=== PATIENT | male | born 1980 | race Caucasian/White ===

== ENCOUNTER 2019-10-27 19:20 | Emergency (ER) | payer OTHER ==
[2019-10-27 19:28] VITALS: BP 115/96; PULSE 85; BMI 23.7
[2019-10-27 19:34] VITALS: TEMP 98.2
[2019-10-27] MEDS ORDERED: levETIRAcetam 500 MG/5 ML INJECTION VIAL IVPB ONE ×2 (19:45→19:47)
--- NOTE | 2019-10-27 19:50 | PDOC ---
History of Present Illness - General Chief Complaint: Seizure Stated Complaint: SEIZURE Time Seen by Provider: 10/27/19 19:29 Past History - Past Medical History Allergies/Adverse Reactions: Allergies Allergy/AdvReac Type Severity Reaction Status Date / Time Penicillins Allergy Hives Verified 10/27/19 19:25 Home Medications: Ambulatory Orders Gabapentin [Neurontin] 3,600 mg PO ASDIR 07/27/18 Oxcarbazepine [Trileptal -] 300 mg PO BID 07/27/18 COPD: No Psychiatric Problems: Yes (ADHD, MOOD SWINGS.) Seizures: Yes - Psycho Social/Smoking Cessation Hx Smoking History: Never smoked Number of Cigarettes Smoked Daily: 10 Hx Alcohol Use: No Drug/Substance Use Hx: No Substance Use Type: None *Physical Exam - Vital Signs Last Vital Signs Temp Pulse Resp BP Pulse Ox 98.2 F 85 20 115/96 100 10/27/19 19:25 10/27/19 19:26 10/27/19 19:26 10/27/19 19:26 10/27/19 19:26 ED Treatment Course - LABORATORY CBC & Chemistry Diagram: 10/27/19 20:30 10/27/19 20:30 - RADIOLOGY Radiology Studies Ordered: Category Date Time Status HEAD CT WITHOUT CONTRAST [CT] Stat CT Scan 10/27/19 19:46 Ordered Medical Decision Making - Medical Decision Making 10/27/19 20:01 39M PMH Seizures, intermittent explosive disorder, anxiety presenting after witnessed seizure at 7pm. Pt sat down for dinner and then had generalized shaking seizure. Fell and hit his head on the floor. Seizure lasted about 2 minutes and pt was unresponsive for an additional 2 minutes before "waking up," episode witnessed by brother at bedside. Pt took his medications this morning but endorses lack of sleep overnight. Last seizure was a few days ago right before pt was released from [facility]. Does not have a neurologist. Most of his medical care is at [facility]. CONSTITUTIONAL: Denies F / C HEENT: Denies changes in vision / hearing, sore throat, rhinorrhea RESP: Denies SOB CARD: Denies chest pain GI: Denies N / V / D, abdominal pain : Denies incontinence SKIN: Denies rashes NEURO: Denies acute numbness, tingling. Endorses chronic h/o numbness of the RUE. MSK: Denies neck pain PSYCH: Endorses anxiety and tremulousness GEN: NAD, comfortable. AAOx3. HEENT: NC/AT, CN II-XII grossly intact, EOMI, PERRL. No facial asymmetry. Moist mucous membranes. Normal voice. Supple neck w/ FROM, no midline TTP. CV: S1/S2, RRR, no m/r/g LUNG: CTAB, no wheezes, crackles, rales, rhonchi. GI: Soft, ndnt, +BS, no guarding, no rebound. No masses. EXTREMITIES: No LE edema. No obvious deformities of all extremities. Occasionally tremulous of RUE and RLE. SKIN: Warm, dry, no rashes appreciated. PSYCH: Normal mood and affect. NEURO: Moving all extremities, 5/5 RUE and RLE strength. 3/5 LUE and LLE strength; effort dependent. Sensation RUE > LUE, chronic. Sensation LEs intact and symmetric. 39M PMH Seizures, intermittent explosive disorder, anxiety presenting after a witness seizure w/ head strike. Pt states he is anxious and tremulous; tremors appear volitional in nature. - CBC, CMP - AEDs, fluids, tylenol Confirmed medications w/ [facility]: hydroxyzine 50mg 2 caps 1-2/day gabapentin 600mg 2 cap BID Oxycarbezepam 300 1.5 capsules BID 10/27/19 20:06 - loading with Oxycarbezepam and tylenol - fluids 10/27/19 20:29 rapid response was called - CT was concerned regarding shaking movements that pt was having. These movements were present at time of exam, patient remains awake and alert. At CT console, RN and I confirmed these movements were present. . A responding MD verbally requested ativan which was pulled from the pyxis by the RN but not opened/used. I verbally cancelled the order, the ativan was not given, and RN returned to [facility]. 10/27/19 21:34 CT Head Impression w/o acute pathology Labs reviewed unremarkable Pt states he is anxious and tremulous. Requesting Ativan as "that's what he gets at [facility]" Explained to pt that Ativan has specific indications for seizures. 10/27/19 21:46 Neuro c/s 10/27/19 22:02 d/w Dr. Carrizales - recs f/u neuro Boostrix Pt declined wound wash out and bacitracin DC w/ neuro f/u Discharge - Discharge Information Problems reviewed: Yes Clinical Impression/Diagnosis: Seizure Condition: Stable Disposition: HOME - Admission No - Follow up/Referral Referrals: Paco Carrizales MD [Staff Physician] - - Patient Discharge Instructions Patient Printed Discharge Instructions: DI for Seizure Disorder -- Adult Additional Instructions: Follow up with neurology in the next 1-2 days. Continue with your home medications as prescribed. Your head CT was negative for acute pathology. Immediately return to the nearest Emergency Department if you experience: - seizures - chest pain, shortness of breath - anything that concerns you - Post Discharge Activity
[2019-10-27] MEDS ORDERED: OXcarbazepine 300 MG TABLET (UD) PO ONE (20:05)
[2019-10-27] MEDS ORDERED: LORazepam 2 MG/ML SDV VIAL ONE (20:20)
[2019-10-27] MEDS ORDERED: ACETAMINOPHEN 1000 MG/100 ML VIAL (NON FORMULARY) IVPB ONE (20:27)
[2019-10-27] MEDS ORDERED: SODIUM CHLORIDE 0.9% 500 ML INFUS.BAG IV ONE (20:27)
[2019-10-27] MEDS ORDERED: ACETAMINOPHEN INJECTION 100 ML IVPB ONE (20:37)
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
[2019-10-27] MEDS ORDERED: OXcarbazepine 150 MG TABLET (UD) PO ONE (20:45)
[2019-10-27 21:13] LABS: BASO % 2.4 % (0-2.0); EOS % 7.3 % (0-4.5); HEMATOCRIT 40.8 % (35.4-49); HEMOGLOBIN 13.8 GM/dL (11.7-16.9); LYMPH % 36.4 % (8-40); MCH 28.3 pg (25.7-33.7); MCHC 33.8 g/dl (32.0-35.9); MEAN CELL VOLUME 83.7 fl (80-96); MEAN PLT VOLUME 7.5 fl (7.5-11.1); MONO % 8.7 % (3.8-10.2); NEUT % 45.2 % (42.8-82.8); PLATELET COUNT 276 K/MM3 (134-434); RBC 4.87 M/mm3 (4.00-5.60); WHITE BLOOD COUNT 5.2 K/mm3 (4.0-10.0)
[2019-10-27 21:41] LABS: BILIRUBIN,TOTAL 0.2 mg/dL (0.2-1); BLOOD UREA NITROGEN 13.7 mg/dL (7-18); CALCIUM 9.1 mg/dL (8.5-10.1); CREATININE 1.2 mg/dL (0.55-1.3); MAGNESIUM 2.1 mg/dL (1.8-2.4); PHOSPHOROUS 4.2 mg/dL (2.5-4.9); POTASSIUM 3.9 mmol/L (3.5-5.1); TOT PROT 7.1 g/dl (6.4-8.2)
[2019-10-27] MEDS ORDERED: DIPHTH,PERTUSS(ACELL),TET 0.5 ML DISP.SYRIN IM ONE ×2 (22:09→22:12)
== END 2019-10-27 22:27 | disposition home or self-care (01) ==
LOC: JER 19:20
DX: S01.81XA Laceration without foreign body of other part of head, initial encounter (principal); W07.XXXA Fall from chair, initial encounter; G40.909 Epilepsy, unspecified, not intractable, without status epilepticus; Y93.89 Activity, other specified; Y92.038 Other place in apartment as the place of occurrence of the external cause; Y99.8 Other external cause status; Z88.0 Allergy status to penicillin; F90.9 Attention-deficit hyperactivity disorder, unspecified type; F39 Unspecified mood [affective] disorder
CPT/HCPCS: 36415; 70450-TC; 80053; 83735; 84100; 85025; 90715; 99282-25; J0131

== ENCOUNTER 2022-05-20 07:25 | Emergency (ER) | payer OTHER ==
[2022-05-20 07:51] VITALS: RESP 16; BMI 23.1
[2022-05-20] MEDS ORDERED: IBUPROFEN 400 MG TABLET (FP) PO ONE ×2 (08:06→08:19)
[2022-05-20 10:48] VITALS: BP 113/62; PULSE 65; TEMP 97.8
== END 2022-05-20 10:50 | disposition home or self-care (01) ==
LOC: JER 07:25
DX: M25.532 Pain in left wrist (principal); M25.512 Pain in left shoulder; M54.50 Low back pain, unspecified; Y35.893A Legal intervention involving other specified means, suspect injured, initial encounter
CPT/HCPCS: 72100-TC-FY; 73030-TC-LT-FY; 73110-TC-LT-FY; 99285-25

== ENCOUNTER 2022-05-27 15:32 | Emergency (ER) | payer OTHER ==
[2022-05-27 15:49] VITALS: BP 122/84; PULSE 77; RESP 18; TEMP 99; BMI 23.1
[2022-05-27 16:39] LABS: BASO % 1.4 % (0-2.0); EOS % 3.4 % (0-4.5); HEMATOCRIT 42.3 % (35.4-49); HEMOGLOBIN 14.8 GM/dL (11.7-16.9); LYMPH % 20.7 % (8-40); MCH 30.1 pg (25.7-33.7); MEAN CELL VOLUME 86.1 fl (80-96); MONO % 9.1 % (3.8-10.2); NEUT % 65.4 % (42.8-82.8); PLATELET COUNT 217 10^3/uL (134-434); RBC 4.91 M/mm3 (4.00-5.60); RDW 13.6 % (11.9-15.9); WHITE BLOOD COUNT 7.3 K/mm3 (4.0-10.0)
[2022-05-27 17:10] LABS: CALCIUM 8.5 mg/dL (8.5-10.1)
[2022-05-27 17:11] LABS: BLOOD UREA NITROGEN 15.4 mg/dL (7-18)
[2022-05-27 17:14] LABS: CREATININE 1.1 mg/dL (0.55-1.3)
[2022-05-27 17:15] LABS: BILIRUBIN,TOTAL 0.3 mg/dL (0.2-1)
== END 2022-05-27 17:15 | disposition left against medical advice (07) ==
LOC: JER 15:32
DX: R25.1 Tremor, unspecified (principal)
CPT/HCPCS: 36415; 80053; 85025; 93005; 93010; 99283-25

== ENCOUNTER 2022-05-31 20:26 | Emergency (ER) | payer OTHER ==
[2022-05-31 20:34] VITALS: BP 133/91; PULSE 82; RESP 18; TEMP 98.4; BMI 23.1
[2022-05-31] MEDS ORDERED: SODIUM CHLORIDE 0.9% 500 ML INFUS.BAG IV ONE (22:04)
[2022-05-31] MEDS ORDERED: ACETAMINOPHEN 1000 MG/100 ML BAG IVPB ONE (22:04)
[2022-05-31 22:18] LABS: BASO % 2.3 % (0-2.0); EOS % 4.5 % (0-4.5); HEMATOCRIT 39.9 % (35.4-49); LYMPH % 27.1 % (8-40); MCH 30.2 pg (25.7-33.7); MCHC 35.1 g/dl (32.0-35.9); MEAN CELL VOLUME 86.1 fl (80-96); MEAN PLT VOLUME 8.2 fl (7.5-11.1); MONO % 9.5 % (3.8-10.2); NEUT % 56.6 % (42.8-82.8); PLATELET COUNT 209 10^3/uL (134-434); RBC 4.63 M/mm3 (4.00-5.60); RDW 13.8 % (11.9-15.9); WHITE BLOOD COUNT 6.6 K/mm3 (4.0-10.0)
[2022-05-31 22:27] LABS: PH,URINE 6.5 (5.0-8.0); URINE APPEARANCE CLEAR; URINE BILIRUBIN NEGATIVE (NEGATIVE); URINE COLOR YELLOW; URINE GLUCOSE (UA) NEGATIVE (NEGATIVE); URINE KETONE NEGATIVE (NEGATIVE); URINE LEUK ESTERASE NEGATIVE (NEGATIVE); URINE NITRITE NEGATIVE (NEGATIVE); URINE PROTEIN NEGATIVE (NEGATIVE); URINE UROBILINOGEN 0.2 mg/dL (0.2-1.0)
[2022-05-31 22:47] LABS: BLOOD UREA NITROGEN 14.9 mg/dL (7-18); CALCIUM 8.3 mg/dL (8.5-10.1)
[2022-05-31 22:48] LABS: ALBUMIN 3.7 g/dl (3.4-5.0)
[2022-05-31 22:50] LABS: CREATININE 1.1 mg/dL (0.55-1.3)
[2022-05-31 22:52] LABS: BILIRUBIN,TOTAL 0.2 mg/dL (0.2-1); TOT PROT 6.5 g/dl (6.4-8.2)
== END 2022-05-31 22:54 | disposition left against medical advice (07) ==
LOC: JER 20:26
DX: G40.89 Other seizures (principal)
CPT/HCPCS: 36415; 70450-TC; 70486-TC; 71045-TC-FY; 72125-TC; 80053; 81003; 82550; 82553; 82962; 83735; 85025; 87086; 99285-25

== ENCOUNTER 2025-05-20 14:44 | Inpatient (IN) | payer OTHER ==
[2025-05-20 14:52] VITALS: BMI 22.4
[2025-05-20] MEDS ORDERED: ACETAMINOPHEN 325 MG TABLET (FP) ONE (16:01)
[2025-05-20] MEDS: ACETAMINOPHEN 325 MG TABLET (FP) PO ONE (16:08)
[2025-05-20 16:51] LABS: ABSOLUTE IMMATURE GRANULOCYTES 0.02 x10^3/uL (0.0-0.031); BASOPHILS # 0.10 x10^3/uL (0.01-0.08); EOSINOPHIL % 0.0 % (0.8-7.0); EOSINOPHILS # 0.00 x10^3/uL (0.04-0.54); MCHC 31.7 g/dl (32.3-36.5); MEAN CELL VOLUME 88.5 fl (79.0-92.2); MEAN PLT VOLUME 9.4 fl (9.4-12.4); MONOCYTE # 0.74 x10^3/uL (0.30-0.82); MONOCYTE % 7.3 % (5.3-12.2); RDW 12.5 % (12.1-15.9)
[2025-05-20 16:52] LABS: URINE APPEARANCE CLEAR; URINE BILIRUBIN NEGATIVE (NEGATIVE); URINE COLOR YELLOW; URINE GLUCOSE (UA) NEGATIVE (NEGATIVE); URINE KETONE NEGATIVE (NEGATIVE); URINE LEUK ESTERASE NEGATIVE (NEGATIVE); URINE NITRITE NEGATIVE (NEGATIVE); URINE PROTEIN NEGATIVE (NEGATIVE); URINE UROBILINOGEN 0.2 mg/dL (0.2-1.0)
[2025-05-20 16:54] LABS: BG HCT 41.0 % (35.4-49); VENOUS BASE EXCESS -1.1 mmol/L (-2-2); VENOUS O2 SATURATION 51.5 % (70-80); VENOUS PCO2 45.0 mmHg (38-52); VENOUS PH 7.356 (7.310-7.410)
[2025-05-20 17:00] LABS: INR 1.15 (0.83-1.09); PROTHROMBIN TIME (PATIENT) 12.6 SEC (9.7-13.0)
[2025-05-20 17:02] LABS: ACTIVATED PTT 29.6 SECONDS (25.2-36.5)
[2025-05-20 17:14] LABS: CO2 30.0 mmol/L (21-32); GLUCOSE,RANDOM 106.0 mg/dL (74-106)
[2025-05-20 17:17] LABS: CREATININE 1.0 mg/dL (0.55-1.3); SGOT/AST 25.0 U/L (15-37); SGPT/ALT 33.0 U/L (13-61)
[2025-05-20 17:19] LABS: TOT PROT 6.4 g/dl (6.4-8.2)
[2025-05-20 17:20] LABS: ALK PHOS 53.0 U/L (45-117)
[2025-05-20] MEDS ORDERED: VANCOMYCIN HCL 1,500 MG in DEXTROSE 5%-WATER - 500 ML IVPB ONE (17:32)
[2025-05-20] MEDS ORDERED: PIPERACILLIN/TAZOB 4.5 GM 4.5 GM/100 ML BAG IVPB ONE (17:52)
[2025-05-20] MEDS: PIPERACILLIN/TAZOB 4.5 GM 4.5 GM in DEXTROSE 5%-WATER 100 ML IVPB ONE (18:00)
[2025-05-20] MEDS: VANCOMYCIN HCL IN 5 % DEXTROSE 1,500 MG/300 ML BAG IVPB ONE (19:48)
[2025-05-20] MEDS ORDERED: ACETAMINOPHEN 1000 MG/100 ML BAG IVPB PRN (22:44)
[2025-05-20] MEDS ORDERED: KETOROLAC TROMETHAMINE 30 MG/1 ML VIAL IVPUSH PRN (22:46)
[2025-05-20 22:54] LABS: METHADONE, UR NEGATIVE (NEGATIVE); OPIATES, URI NEGATIVE (NEGATIVE); URINE AMPHETAMINES NEGATIVE (NEGATIVE); URINE BARBITURATES NEGATIVE (NEGATIVE); URINE BENZODIAZEPINES NEGATIVE (NEGATIVE)
[2025-05-20 22:55] LABS: PHENCYCLIDINE,URINE NEGATIVE (NEGATIVE)
[2025-05-20 22:58] LABS: COCAINE, UR POSITIVE (NEGATIVE)
[2025-05-21] MEDS: morphine CARPU-JECT 2 MG/1 ML DISP.SYRIN IVPUSH PRN (00:45)
[2025-05-21] MEDS: AMPICILLIN NA/SULBACTAM NA 3 GM in SODIUM CHLORIDE 100 ML IVPB SCH (02:41)
[2025-05-21 08:59] LABS: ABSOLUTE IMMATURE GRANULOCYTES 0.02 x10^3/uL (0.0-0.031); BASOPHILS # 0.09 x10^3/uL (0.01-0.08); EOSINOPHIL % 0.8 % (0.8-7.0); EOSINOPHILS # 0.06 x10^3/uL (0.04-0.54); MCHC 32.0 g/dl (32.3-36.5); MEAN CELL VOLUME 87.5 fl (79.0-92.2); MEAN PLT VOLUME 9.8 fl (9.4-12.4); MONOCYTE # 0.73 x10^3/uL (0.30-0.82); MONOCYTE % 9.3 % (5.3-12.2); RDW 12.5 % (12.1-15.9)
[2025-05-21] MEDS: VANCOMYCIN PREMIX 1.5 GM 1,500 MG/300 ML BAG IVPB SCH (09:47)
[2025-05-21] MEDS: GABAPENTIN 300 MG CAPSULE PO SCH (09:47)
[2025-05-21] MEDS: ENOXAPARIN NA (PORCINE) 40 MG/0.4 ML DISP.SYRIN SQ SCH (09:47)
[2025-05-21] MEDS: NICOTINE 7 MG/24 HOURS TOPICAL PATCH TD SCH (09:47)
[2025-05-21 09:57] LABS: CO2 30.0 mmol/L (21-32); GLUCOSE,RANDOM 98.0 mg/dL (74-106)
[2025-05-21 10:01] LABS: CREATININE 1.0 mg/dL (0.55-1.3); SGOT/AST 26.0 U/L (15-37); SGPT/ALT 35.0 U/L (13-61)
[2025-05-21 10:02] LABS: TOT PROT 6.5 g/dl (6.4-8.2)
[2025-05-21 10:03] LABS: ALK PHOS 50.0 U/L (45-117)
[2025-05-21 10:10] LABS: ERYTHROCYTE SEDIMENTATION RATE 8 mm/hr (0-10)
[2025-05-21] MEDS: OXcarbazepine 300 MG TABLET (UD) PO SCH (11:46)
[2025-05-21] MEDS: VANCOMYCIN HCL IN 5 % DEXTROSE 1,500 MG/300 ML BAG IVPB SCH (12:39)
[2025-05-21] MEDS: CEFAZOLIN 1 GM in DEXTROSE 5%-WATER - 50 ML IVPB SCH (18:32)
[2025-05-21] MEDS ORDERED: VANCOMYCIN HCL 1,500 MG in DEXTROSE 5%-WATER - 500 ML IVPB SCH (20:00)
[2025-05-21] MEDS ORDERED: VANCOMYCIN HCL IN 5 % DEXTROSE 1,500 MG/300 ML BAG IVPB SCH (20:00)
[2025-05-21] MEDS: VANCOMYCIN/WATER 1250 MG 1,250 MG/250 ML BAG IVPB SCH (22:10)
[2025-05-22 03:15] VITALS: RESP 18
[2025-05-22 08:26] LABS: MCHC 31.8 g/dl (32.3-36.5); MEAN CELL VOLUME 88.0 fl (79.0-92.2); MEAN PLT VOLUME 9.6 fl (9.4-12.4); RDW 12.4 % (12.1-15.9)
[2025-05-22 09:08] LABS: CO2 29.0 mmol/L (21-32); GLUCOSE,RANDOM 111.0 mg/dL (74-106)
[2025-05-22 09:11] LABS: CREATININE 0.9 mg/dL (0.55-1.3)
[2025-05-22] MEDS ORDERED: NALOXONE HCL 0.4 MG/ML VIAL ONE (09:22)
[2025-05-22] MEDS ORDERED: ACETAMINOPHEN 325 MG TABLET (FP) PO PRN (15:48)
[2025-05-22] MEDS ORDERED: KETOROLAC TROMETHAMINE 30 MG/1 ML VIAL IVPUSH PRN (15:49)
[2025-05-22] MEDS ORDERED: NICOTINE 14 MG/24 HOURS TOPICAL PATCH TD SCH (16:18)
[2025-05-22] MEDS: CEFAZOLIN 1 GM/D5W 1 GM/50 ML BAG IVPB SCH (17:10)
[2025-05-22 17:39] LABS: HIV INTERPRETATION NEGATIVE (NEGATIVE)
[2025-05-22] MEDS: OXcarbazepine 150 MG TABLET (UD) PO SCH (21:08)
[2025-05-22] MEDS: morphine CARPU-JECT 2 MG/1 ML DISP.SYRIN IVPUSH PRN (21:08)
[2025-05-22] MEDS: GABAPENTIN 300 MG CAPSULE PO SCH (21:08)
[2025-05-22] MEDS: VANCOMYCIN/WATER 1250 MG 1,250 MG/250 ML BAG IVPB SCH (23:31)
[2025-05-23 06:41] LABS: MCHC 31.2 g/dl (32.3-36.5); MEAN CELL VOLUME 90.2 fl (79.0-92.2); MEAN PLT VOLUME 9.7 fl (9.4-12.4); RDW 12.4 % (12.1-15.9)
[2025-05-23 07:02] LABS: CO2 35.0 mmol/L (21-32)
[2025-05-23 07:03] VITALS: TEMP 98.2
[2025-05-23 07:03] LABS: GLUCOSE,RANDOM 116.0 mg/dL (74-106)
[2025-05-23 07:06] LABS: CREATININE 1.1 mg/dL (0.55-1.3)
[2025-05-23 08:39] VITALS: BP 126/99; PULSE 65
[2025-05-23] MEDS ORDERED: ENOXAPARIN NA (PORCINE) 40 MG/0.4 ML DISP.SYRIN SQ SCH (10:00)
[2025-05-23] MEDS ORDERED: morphine CARPU-JECT 2 MG/1 ML DISP.SYRIN IVPUSH ONE (20:42)
[2025-05-24 12:53] LABS: HCV DIAGNOSTIC IN-HOUSE W/RFLX REACTIVE (NONREACTIVE)
== END 2025-05-23 08:39 | disposition left against medical advice (07) | DRG 383 ==
LOC: JER 14:44 → JERBED 20:49 → J6S 05-21 00:24 → J4W 05-22 11:03
PROVIDERS: ADMIT Hospitalist; ATTEND Internal Medicine
DX: L03.011 Cellulitis of right finger (principal); I07.8 Other rheumatic tricuspid valve diseases; F14.10 Cocaine abuse, uncomplicated; F10.90 Alcohol use, unspecified, uncomplicated; F17.210 Nicotine dependence, cigarettes, uncomplicated; G40.909 Epilepsy, unspecified, not intractable, without status epilepticus; R22.31 Localized swelling, mass and lump, right upper limb; R55 Syncope and collapse; Z59.00 Homelessness unspecified
CPT/HCPCS: 36415; 70450-TC; 71045-TC-FY; 73070-TC-RT-FY; 73090-TC-RT-FY; 73130-TC-RT-FY; 73201-TC-RT; 80048; 80053; 80307; 81003; 82550; 82803; 82962; 83605; 83735; 84100; 84484; 85025; 85027; 85610; 85651; 85730; 86140; 86803; 86850; 86900; 86901; 87040; 87086; 87389; 87522; 87637-QW; 93005; 93010; 93306-TC; 99285-25; G0480; Q9967

== ENCOUNTER 2025-05-23 15:39 | Observation (INO) | payer OTHER ==
[2025-05-23 15:47] VITALS: BMI 22.4
[2025-05-23] MEDS ORDERED: GABAPENTIN 300 MG CAPSULE ONE (17:55)
[2025-05-23] MEDS ORDERED: ACETAMINOPHEN 325 MG TABLET (FP) ONE (17:55)
[2025-05-23 18:02] LABS: MCHC 31.6 g/dl (32.3-36.5); MEAN CELL VOLUME 88.0 fl (79.0-92.2); MEAN PLT VOLUME 9.6 fl (9.4-12.4); RDW 12.3 % (12.1-15.9)
[2025-05-23] MEDS: ACETAMINOPHEN 325 MG TABLET (FP) PO ONE (18:08)
[2025-05-23] MEDS: GABAPENTIN 300 MG CAPSULE PO SCH (18:09)
[2025-05-23] MEDS: LACTATED RINGERS SOLUTION 1,000 ML/1,000 ML INFUS.BAG IV SCH (18:09)
[2025-05-23] MEDS ORDERED: KETOROLAC TROMETHAMINE 15 MG/ML VIAL ONE (18:12)
[2025-05-23] MEDS: VANCOMYCIN/WATER 1250 MG 1,250 MG/250 ML BAG IVPB SCH (18:20)
[2025-05-23] MEDS: KETOROLAC TROMETHAMINE 15 MG/ML VIAL IVPUSH PRN (18:21)
[2025-05-23 18:23] LABS: CO2 35.0 mmol/L (21-32); GLUCOSE,RANDOM 100.0 mg/dL (74-106)
[2025-05-23 18:26] LABS: CREATININE 0.9 mg/dL (0.55-1.3); SGOT/AST 51.0 U/L (15-37); SGPT/ALT 63.0 U/L (13-61)
[2025-05-23 18:26] LABS: METHADONE, UR NEGATIVE (NEGATIVE); PHENCYCLIDINE,URINE NEGATIVE (NEGATIVE); URINE AMPHETAMINES NEGATIVE (NEGATIVE); URINE BARBITURATES NEGATIVE (NEGATIVE); URINE BENZODIAZEPINES NEGATIVE (NEGATIVE)
[2025-05-23 18:27] LABS: TOT PROT 7.4 g/dl (6.4-8.2)
[2025-05-23 18:29] LABS: ALK PHOS 50.0 U/L (45-117)
[2025-05-23 19:05] LABS: COCAINE, UR POSITIVE (NEGATIVE); OPIATES, URI POSITIVE (NEGATIVE)
[2025-05-23] MEDS: ACETAMINOPHEN 1000 MG/100 ML BAG IVPB ONE (21:46)
[2025-05-23] MEDS: HEPARIN NA (PORCINE) 5,000 UNITS/ML 1ML VIAL SQ SCH (21:48)
[2025-05-23] MEDS: OXcarbazepine 150 MG TABLET (UD) PO SCH (21:48)
[2025-05-24 06:54] LABS: MCHC 31.2 g/dl (32.3-36.5); MEAN CELL VOLUME 90.1 fl (79.0-92.2); MEAN PLT VOLUME 9.8 fl (9.4-12.4); RDW 12.3 % (12.1-15.9)
[2025-05-24 07:42] LABS: CO2 31.0 mmol/L (21-32); GLUCOSE,RANDOM 104.0 mg/dL (74-106)
[2025-05-24 07:44] LABS: CREATININE 1.0 mg/dL (0.55-1.3)
[2025-05-24] MEDS ORDERED: KETOROLAC TROMETHAMINE 15 MG/ML VIAL IVPUSH PRN ×3 (12:04→12:40)
[2025-05-24] MEDS ORDERED: ACETAMINOPHEN 325 MG TABLET (FP) PO PRN (15:18)
[2025-05-24] MEDS: ACETAMINOPHEN 325 MG TABLET (FP) PO PRN (15:31)
[2025-05-24] MEDS: NICOTINE 21 MG/24 HOURS TOPICAL PATCH TD SCH (15:32)
[2025-05-24] MEDS: VANCOMYCIN/WATER 1250 MG 1,250 MG/250 ML BAG IVPB SCH (17:54)
[2025-05-24] MEDS: morphine CARPU-JECT 2 MG/1 ML DISP.SYRIN IM PRN (17:55)
[2025-05-25 07:50] LABS: ABSOLUTE IMMATURE GRANULOCYTES 0.04 x10^3/uL (0.0-0.031); BASOPHILS # 0.11 x10^3/uL (0.01-0.08); EOSINOPHIL % 2.9 % (0.8-7.0); EOSINOPHILS # 0.19 x10^3/uL (0.04-0.54); MCHC 30.8 g/dl (32.3-36.5); MEAN CELL VOLUME 89.9 fl (79.0-92.2); MEAN PLT VOLUME 10.0 fl (9.4-12.4); MONOCYTE # 0.64 x10^3/uL (0.30-0.82); MONOCYTE % 9.9 % (5.3-12.2); RDW 12.4 % (12.1-15.9)
[2025-05-25 08:17] LABS: CO2 34.0 mmol/L (21-32); GLUCOSE,RANDOM 97.0 mg/dL (74-106)
[2025-05-25 08:20] LABS: SGOT/AST 47.0 U/L (15-37); SGPT/ALT 59.0 U/L (13-61)
[2025-05-25 08:22] LABS: ALK PHOS 44.0 U/L (45-117); CREATININE 1.2 mg/dL (0.55-1.3); TOT PROT 6.1 g/dl (6.4-8.2)
[2025-05-26 02:01] VITALS: RESP 16
[2025-05-26 06:50] LABS: ABSOLUTE IMMATURE GRANULOCYTES 0.02 x10^3/uL (0.0-0.031); BASOPHILS # 0.09 x10^3/uL (0.01-0.08); EOSINOPHIL % 1.1 % (0.8-7.0); EOSINOPHILS # 0.06 x10^3/uL (0.04-0.54); MCHC 31.1 g/dl (32.3-36.5); MEAN CELL VOLUME 88.6 fl (79.0-92.2); MEAN PLT VOLUME 9.7 fl (9.4-12.4); MONOCYTE # 0.50 x10^3/uL (0.30-0.82); MONOCYTE % 9.2 % (5.3-12.2); RDW 12.3 % (12.1-15.9)
[2025-05-26 09:33] VITALS: BP 145/97; PULSE 76; TEMP 98.6
[2025-05-26 10:22] LABS: GLUCOSE,RANDOM 103.0 mg/dL (74-106)
[2025-05-26 10:23] LABS: TOT PROT 6.5 g/dl (6.4-8.2)
[2025-05-26 10:24] LABS: CO2 25.0 mmol/L (21-32)
[2025-05-26 10:25] LABS: ALK PHOS 44.0 U/L (40-150)
[2025-05-26 10:28] LABS: CREATININE 0.89 mg/dL (0.55-1.3); SGOT/AST 52.0 U/L (5-34); SGPT/ALT 60.0 U/L (0-55)
[2025-05-26] MEDS: ACETAMINOPHEN 500 MG TABLET (FP) PO SCH (10:28)
[2025-05-26] MEDS: CELECOXIB 200 MG CAPSULE PO SCH (10:30)
== END 2025-05-26 12:55 | disposition left against medical advice (07) ==
LOC: JER 15:39 → JERBED 17:52 → J4S 19:47
PROVIDERS: ADMIT Internal Medicine; ATTEND Internal Medicine
PROC: 3E033NZ Introduction of Analgesics, Hypnotics, Sedatives into Peripheral Vein, Percutaneous Approach (ICD-10-PCS; principal; 2025-05-23)
PROC: 3E023GC Introduction of Other Therapeutic Substance into Muscle, Percutaneous Approach (ICD-10-PCS; 2025-05-23)
PROC: 3E0337Z Introduction of Electrolytic and Water Balance Substance into Peripheral Vein, Percutaneous Approach (ICD-10-PCS; 2025-05-23)
PROC: 3E023NZ Introduction of Analgesics, Hypnotics, Sedatives into Muscle, Percutaneous Approach (ICD-10-PCS; 2025-05-23)
PROC: 3E03329 Introduction of Other Anti-infective into Peripheral Vein, Percutaneous Approach (ICD-10-PCS; 2025-05-23)
DX: Z53.29 Procedure and treatment not carried out because of patient's decision for other reasons (principal); M25.521 Pain in right elbow; R56.9 Unspecified convulsions; F39 Unspecified mood [affective] disorder; Z86.19 Personal history of other infectious and parasitic diseases; F17.200 Nicotine dependence, unspecified, uncomplicated; Z86.59 Personal history of other mental and behavioral disorders
CPT/HCPCS: 36415; 80048; 80053; 80307; 83735; 85025; 85027; 86850; 86900; 86901; 87040; 93005; 93010; 95816; 96361; 96365; 96366; 96372; 96375; 99285-25; G0378

== ENCOUNTER 2025-07-08 02:24 | Emergency (ER) | payer OTHER ==
[2025-07-08 02:44] VITALS: BP 127/77; PULSE 74; RESP 17; TEMP 98.4; BMI 20.8
[2025-07-08] MEDS ORDERED: THIAMINE HCL 200 MG/2 ML VIAL ONE (02:51)
[2025-07-08] MEDS: THIAMINE HCL 200 MG/2 ML VIAL IVPB ONE (02:54)
[2025-07-08] MEDS: SODIUM CHLORIDE 0.9% 500 ML INFUS.BAG IV ONE (02:54)
[2025-07-08 03:11] LABS: BG HCT 43.0 % (35.4-49); VENOUS BASE EXCESS 2.2 mmol/L (-2-2); VENOUS O2 SATURATION 96.1 % (70-80); VENOUS PCO2 41.8 mmHg (38-52); VENOUS PH 7.425 (7.310-7.410)
[2025-07-08 03:17] LABS: ABSOLUTE IMMATURE GRANULOCYTES 0.02 x10^3/uL (0.0-0.031); BASOPHILS # 0.10 x10^3/uL (0.01-0.08); EOSINOPHIL % 1.1 % (0.8-7.0); EOSINOPHILS # 0.07 x10^3/uL (0.04-0.54); MCHC 32.4 g/dl (32.3-36.5); MEAN CELL VOLUME 86.7 fl (79.0-92.2); MEAN PLT VOLUME 9.6 fl (9.4-12.4); MONOCYTE # 0.54 x10^3/uL (0.30-0.82); MONOCYTE % 8.4 % (5.3-12.2); RDW 13.2 % (12.1-15.9)
[2025-07-08 03:29] LABS: INR 1.11 (0.83-1.09); PROTHROMBIN TIME (PATIENT) 12.1 SEC (9.7-13.0)
[2025-07-08 03:32] LABS: ACTIVATED PTT 31.3 SECONDS (25.2-36.5)
[2025-07-08 03:42] LABS: GLUCOSE,RANDOM 93 mg/dL (74-106); TOT PROT 6.6 g/dl (6.4-8.2)
[2025-07-08 03:43] LABS: CO2 25 mmol/L (21-32)
[2025-07-08 03:47] LABS: SGPT/ALT 43 U/L (0-55)
[2025-07-08 03:48] LABS: CREATININE 1.43 mg/dL (0.55-1.3); SGOT/AST 42 U/L (5-34)
[2025-07-08 04:11] LABS: ALK PHOS 57 U/L (40-150)
[2025-07-08 04:15] LABS: URINE APPEARANCE CLEAR; URINE BILIRUBIN NEGATIVE (NEGATIVE); URINE COLOR YELLOW; URINE GLUCOSE (UA) NEGATIVE (NEGATIVE); URINE KETONE NEGATIVE (NEGATIVE); URINE LEUK ESTERASE NEGATIVE (NEGATIVE); URINE NITRITE NEGATIVE (NEGATIVE); URINE PROTEIN NEGATIVE (NEGATIVE); URINE UROBILINOGEN 1.0 mg/dL (0.2-1.0)
[2025-07-08 04:36] LABS: COCAINE, UR POSITIVE (NEGATIVE); OPIATES, URI NEGATIVE (NEGATIVE); PHENCYCLIDINE,URINE NEGATIVE (NEGATIVE); URINE AMPHETAMINES NEGATIVE (NEGATIVE); URINE BARBITURATES NEGATIVE (NEGATIVE)
[2025-07-08 04:37] LABS: METHADONE, UR NEGATIVE (NEGATIVE); URINE BENZODIAZEPINES NEGATIVE (NEGATIVE)
== END 2025-07-08 04:56 | disposition home or self-care (01) ==
LOC: JER 02:24
PROC: 3E033GC Introduction of Other Therapeutic Substance into Peripheral Vein, Percutaneous Approach (ICD-10-PCS; principal; 2025-07-08)
DX: G40.909 Epilepsy, unspecified, not intractable, without status epilepticus (principal); R61 Generalized hyperhidrosis
CPT/HCPCS: 36415; 70450-TC; 72125-TC; 80048; 80053; 80307; 81003; 82010; 82803; 83605; 85025; 85610; 85730; 87086; 93005; 93010; 99285-25